=== PATIENT | female | born 1955 | race Asian ===

== ENCOUNTER 2017-02-01 20:51 | Emergency (ER) | payer BC ==
[~2017-02-01] VITALS: Ht 157.5 cm; Wt 46.3 kg
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
--- NOTE | 2017-02-01 21:39 | NUR ---
[facility] [employer] CHAIR AT BEDSIDE FOR EVAL.
--- NOTE | 2017-02-01 21:58 | NUR ---
PT TO RADIOLOGY FOR HEAD CT SCAN VIA WHEELCHAIR.
[2017-02-01] MEDS ORDERED: ACETAMINOPHEN ES 500 MG TABLET PO ONE (22:00)
[2017-02-01] MEDS ORDERED: TDAP [DIPH/PERTUSSIS/TET] 0.5 ML VIAL IM ONE ×2 (22:00→22:11)
[2017-02-01] MEDS ORDERED: ACETAMINOPHEN ES 500 MG TABLET ONE (22:11)
--- NOTE | 2017-02-01 22:31 | NUR ---
Patient discharged to home in stable condition. Written and verbal after care instructions given. Patient verbalizes understanding of instruction.
[2017-02-01 22:32] VITALS: BP 151/90
== END 2017-02-01 22:32 | disposition home or self-care (01) ==
LOC: ER 20:51
DX: S40.011A Contusion of right shoulder, initial encounter (principal); S00.11XA Contusion of right eyelid and periocular area, initial encounter; S60.511A Abrasion of right hand, initial encounter; Z88.0 Allergy status to penicillin; Z88.1 Allergy status to other antibiotic agents; Z88.8 Allergy status to other drugs, medicaments and biological substances; W01.198A Fall on same level from slipping, tripping and stumbling with subsequent striking against other object, initial encounter; Y93.01 Activity, walking, marching and hiking; Y92.89 Other specified places as the place of occurrence of the external cause; Y99.9 Unspecified external cause status
CPT/HCPCS: 70450-TC; 90715; A4606; Z7610